=== PATIENT | female | born 2000 | race Caucasian/White ===

== ENCOUNTER 2021-03-08 12:40 | Outpatient (REF) | payer OTHER, SELFPAY | END 2021-03-08 12:41 | disposition home or self-care (01) | LOC: HO.HMGCLDS 12:40 | PROVIDERS: Visit Provider Internal Medicine | DX: Z20.822 Contact with and (suspected) exposure to COVID-19 (principal) | CPT/HCPCS: C9803; U0003; U0005 ==

== ENCOUNTER 2021-08-30 17:41 | Outpatient (REF) | payer OTHER, SELFPAY ==
[2021-08-30 18:35] LABS: Influenza A PCR POSITIVE (Negative); Influenza B PCR NEGATIVE (Negative); Resp Syncy Virus RNA Qual PCR NEGATIVE (Negative); SARS COV2 PCR INHOUSE NEGATIVE (Negative)
== END 2021-08-30 17:42 | disposition home or self-care (01) ==
LOC: HO.LNP 17:41
PROVIDERS: Visit Provider Physician Assistant
DX: Z20.822 Contact with and (suspected) exposure to COVID-19 (principal); B34.9 Viral infection, unspecified
CPT/HCPCS: 0241U

== ENCOUNTER 2021-12-30 08:52 | Emergency (ER) | payer OTHER, SELFPAY ==
--- NOTE | ~2021-12-30 | XR_ITS ---
EXAMINATION: XR CHEST CLINICAL INFORMATION: Chest pain COMPARISON: None TECHNIQUE: 2 views of the chest were obtained. FINDINGS: No significant abnormality is noted involving the heart, lungs, mediastinum, bony thorax or soft tissues. XR/XR chest 2V IMPRESSION: Unremarkable examination.
[2021-12-30 09:00] VITALS: BP 119/94; PULSE 67; RESP 20; TEMP 36.2; O2SAT 99; BMI 34.3
--- NOTE | 2021-12-30 09:05 | ECG_ITS ---
Test Reason : chest pain Blood Pressure : / mmHG Vent. Rate : 061 BPM Atrial Rate : 061 BPM P-R Int : 130 ms QRS Dur : 086 ms QT Int : 402 ms P-R-T Axes : 052 038 033 degrees QTc Int : 404 ms Normal sinus rhythm Normal ECG No previous ECGs available Referred By: Generic ED Physician Electronically Signed By:KAYLEIGH SHARP
--- NOTE | 2021-12-30 09:22 | ED_ITS ---
HPI - Chest Pain General Chief Complaint: Chest Pain Stated Complaint: Chest Pain Time Seen by Provider: 12/30/21 09:17 Source: patient Mode of arrival: ambulatory Limitations: no limitations History of Present Illness HPI narrative: 21 yo female who is healthy presents with chest pain since 8 am which she noticed while lying in bed accompanied by dry heaving. Pain has been constant since and described as tight and worsened with deep breathing and movement. No associated SOB, palpitations, leg swelling or leg pain, cough, fever. No recent travel or sick contact. No OCP use. Had 2 covid vaccinations ([email or web address]). Mom had [place] at 40 yrs of age, MGF CAD Related Data Home Medications Medication Instructions Recorded Confirmed duloxetine 60 mg capsule,delayed 60 mg PO DAILY 08/30/21 release Allergies Allergy/AdvReac Type Severity Reaction Status Date / Time No Known Allergies Allergy Unverified 08/30/21 16:06 Review of Systems Review of Systems: Yes all other systems are reviewed and are negative Constitutional: Constitutional: Reports no additional constitutional co mplaints, Denies body ache(s), Denies chills, Denies fever(s), Denies headache(s) and Denies weakness Eyes: Eyes: Reports no additional eye complaints and Denies change in vision ENT: Reports system reviewed and no additional complaints, except as documented, Denies dizziness, Denies headache(s), Denies nasal congestion, Denies nasal discharge and Denies neck pain Cardiovascular: Cardiovascular: Reports no additional cardiovascular complaints, Reports chest pain, Denies leg edema and Denies dyspnea Respiratory: Respiratory: Reports no additional respiratory complaints, Denies cough and Denies dyspnea Gastrointestinal: Gastrointestinal: Reports no additional gastrointestinal complaints, Denies abdominal pain, Denies diarrhea, Reports nausea and Reports vomiting Genitourinary: Genitourinary: Reports no additional female genitourinary complaints and Denies urinary incontinence Musculoskeletal: Musculoskeletal: Reports no additional musculoskeletal complaints, Denies back pain, Denies arthralgias, Denies joint swelling, Denies neck pain, Denies numbness and Denies tingling Integumentary/Breasts: Skin/Breast: Reports system reviewed and no additional complaints, except as docu and Denies rash Neurologic: Reports system reviewed and no additional complaints, except as documented, Denies Abnormal speech present, Denies dizziness, Denies headache(s ), Denies numbness, Denies tingling and Denies weakness [facility] Past Medical History Attestation statement: The following information was validated with the patient. Source: old records reviewed and nursing notes reviewed Family History Family History (Updated 12/30/21 @ 09:33 by Jailene Headley NP) Mother CAD (coronary artery disease) Maternal Grandfather CAD (coronary artery disease) Social History Social History Advance Directives: No Advance Directives Information Provided: No Physical Exam Vital Signs: Vital Signs: Last Vital Signs Temp 97.2 F 12/30/21 09:00 Pulse 67 12/30/21 09:00 Resp 20 12/30/21 09:00 BP 119/94 H 12/30/21 09:00 Pulse Ox 99 12/30/21 09:00 O2 Del Method 12/30/21 09:00 BMI result Body Mass Index 34.3 Const: Other: +tearful General: alert Orientation/consciousness: patient oriented x3 Limitations: no limitations HEENT: Head: Yes normal to inspection Ears: hearing grossly normal bilaterally General nose exam: Normal external nose present Face and sinus: Yes normal facial exam Mouth: Normal oral and palatal mucosa present Throat: Yes posterior oropharynx normal Eyes: General: appearance normal, both eyes and all related structures Pupils: Equal, round and reactive pupils present Neck: Neck: Yes normal visual inspection Chest: Other: Chest discomfort with movement of trunk, deep breathing Chest palpation & inspection: normal inspection of the chest Resp: Effort & Inspection: normal respiratory effort Auscultation: clear to auscultation bilaterally Cardio: Rate: regular rate Rhythm: regular rhythm Peripheral pulses: Peripheral pulses 2+ throughout GI: Inspection: Yes normal to inspection Palpation (GI): Soft to palpation and nontender Auscultation: normal bowel sounds Back/Spine/Pelvis: Thoracic/Lumbar Spine: thoracic and lumbar spine normal to inspection Skin: General skin exam: no rashes or lesions noted Neuro: General: patient oriented x3, no focal motor deficits and normal sensation to monofilament Cranial nerves: Yes Equal, round and reactive pupils present Cognition (Neuro): normal cognition Speech: No Abnormal speech present Gait exam (Neuro): Normal gait present Motor exam (neuro): 5/5 motor strength present throughout Extrem: General: Yes normal to inspection, Yes no pedal edema and Yes no calf tenderness Course Course Course Narrative: 1145-Labs including d dimer, troponin are negative. CXR shows no acute finding. EKG shows no ischemic changes. COVID screen positive. No hypoxia or tachypnea. CP less likely ACS. Likely Will discharge home with recommendations for quarantine x5 days, return for worrisome sign/symptoms. comfortable with plan for discharge home. MDM - Chest Pain MDM Narrative Medical decision making narrative: 21 yo female here with constant chest pain not exertional describes as tightness worsened with deep breathing and movement since 8am Will need labs, EKG, CXR, covid screen, analgesia less likely acs however strong family history cad, will r/o pe Medical Records Data Attestation: I reviewed the patient's medical records. Lab Data Attestation: I reviewed the patient's lab results. Result diagrams: 12/30/21 09:38 12/30/21 09:38 Labs: Lab Results 12/30/21 12/30/21 12/30/21 Range/Units 09:38 09:38 09:38 WBC 8.8 (4.8-10.8) X10*3/uL RBC 4.71 (4.20-5.50) X10*6/uL Hgb 13.9 (12.0-16.0) g/dl Hct 42.5 (37.0-47.0) % MCV 90.2 (80.0-98.0) fL MCH 29.5 (27.0-33.0) pg MCHC 32.7 (31.0-35.0) g/dl RDW 12.7 (11.0-16.0) % Plt Count 273 (160-400) X10*3/uL MPV 9.7 (9.4-12.3) fL Immature Gran % (Auto) 0.3 (0.0-0.4) % Neut % (Auto) 64.3 (45-73) % Lymph % (Auto) 25.3 (20-40) % [place] % (Auto) 8.2 (2-11) % Eos % (Auto) 1.4 (0-4) % Baso % (Auto) 0.5 (0-2) % Lymph # (Auto) 2.2 (1.2-4.9) X10*3/uL [place] # (Auto) 0.7 (0.1-1.2) X10*3/uL Eos # (Auto) 0.1 (0.0-0.4) X10*3/uL Baso # (Auto) 0.0 (0.0-0.2) X10*3/uL Abs Immat Gran (auto) 0.03 (0.00-0.03) X10*3/uL Absolute Neuts (auto) 5.7 (2.0-8.3) x10*3/uL Absolute Nucleated RBC 0.000 (0.0-0.012) X10*3/uL Nucleated RBC % (auto) 0.0 (0.0-0.2) /100WBC PT (10.0-13.1) SEC INR (0.9-1.1) D-Dimer High Sensitivty NG/ML Sodium 138 (135-145) mmol/L Potassium 4.9 (3.3-5.1) mmol/L Chloride 108 (96-108) mmol/L Carbon Dioxide 19 L (22-29) mmol/L Anion Gap 16 (12-20) BUN 10 (9-16) mg/dL Creatinine 0.72 (0.5-1.4) mg/dL Estim Creat Clear Calc 132.5 Estimated GFR > 60 Random Glucose 102 (60-115) mg/dL Calcium 9.0 (8.4-10.2) mg/dL Total Bilirubin 0.3 (0.0-1.0) mg/dL Direct Bilirubin < 0.2 (0.0-0.5) mg/dL AST 26 (5-31) U/L ALT 23 (0-31) U/L Alkaline Phosphatase 82 (39-117) U/L Troponin I High Sens < 3.5 (<3.5-17.0) ng/L Total Protein 7.2 (6.5-8.0) g/dL Albumin 4.4 (3.5-5.0) g/dL Urine Test (NEGATIVE) COVID-19 (ЕЛЕНА) (Negative) COVID-19 Clin Com 12/30/21 12/30/21 12/30/21 Range/Units 09:38 10:01 10:13 WBC (4.8-10.8) X10*3/uL RBC (4.20-5.50) X10*6/uL Hgb (12.0-16.0) g/dl Hct (37.0-47.0) % MCV (80.0-98.0) fL MCH (27.0-33.0) pg MCHC (31.0-35.0) g/dl RDW (11.0-16.0) % Plt Count (160-400) X10*3/uL MPV (9.4-12.3) fL Immature Gran % (Auto) (0.0-0.4) % Neut % (Auto) (45-73) % Lymph % (Auto) (20-40) % Mohave % (Auto) (2-11) % Eos % (Auto) (0-4) % Baso % (Auto) (0-2) % Lymph # (Auto) (1.2-4.9) X10*3/uL [place] # (Auto) (0.1-1.2) X10*3/uL Eos # (Auto) (0.0-0.4) X10*3/uL Baso # (Auto) (0.0-0.2) X10*3/uL Abs Immat Gran (auto) (0.00-0.03) X10*3/uL Absolute Neuts (auto) (2.0-8.3) x10*3/uL Absolute Nucleated RBC (0.0-0.012) X10*3/uL Nucleated RBC % (auto) (0.0-0.2) /100WBC PT 11.1 (10.0-13.1) SEC INR 1.0 (0.9-1.1) D-Dimer High Sensitivty < 150 NG/ML Sodium (135-145) mmol/L Potassium (3.3-5.1) mmol/L Chloride (96-108) mmol/L Carbon Dioxide (22-29) mmol/L Anion Gap (12-20) BUN (9-16) mg/dL Creatinine (0.5-1.4) mg/dL Estim Creat Clear Calc Estimated GFR Random Glucose (60-115) mg/dL Calcium (8.4-10.2) mg/dL Total Bilirubin (0.0-1.0) mg/dL Direct Bilirubin (0.0-0.5) mg/dL AST (5-31) U/L ALT (0-31) U/L Alkaline Phosphatase (39-117) U/L Troponin I High Sens (<3.5-17.0) ng/L Total Protein (6.5-8.0) g/dL Albumin (3.5-5.0) g/dL Urine Test NEGATIVE (NEGATIVE) COVID-19 (ЕЛЕНА) Positive A (Negative) COVID-19 Clin Com See Note Imaging Data Chest x-ray: Attestation: I personally reviewed and interpreted this imaging study as follows: Radiologist's impression: cc: Jailene Headley DELIVERY DRIVER/SUPERVISOR~ EXAMINATION: XR CHEST CLINICAL INFORMATION: Chest pain COMPARISON: None TECHNIQUE: 2 views of the chest were obtained. FINDINGS: No significant abnormality is noted involving the heart, lungs, mediastinum, bony thorax or soft tissues. XR/XR chest 2V IMPRESSION: Unremarkable examination. ECG Data ECG #1: Attestation: I personally reviewed and interpreted this ECG as follows: ECG interpretation date: 12/30/21 ECG interpretation time: 09:10 Interpretation: NSR with rate 61, normal pr, normal qrs, normal qt Discharge Plan Discharge Clinical Impression: COVID-19, Atypical chest pain Patient Disposition: Home, Self-Care Instructions: Chest Wall Pain (ED), COVID-19 (Coronavirus Disease 2019) (ED) Additional Instructions: Covid screen is positive Quarantine for 5 days Motrin or tylenol for pain as needed Prescriptions: No Action duloxetine 60 mg capsule,delayed release(DR/EC) 60 mg PO DAILY Referrals: Physician,Unknown J [Primary Care Provider] - Stand Alone Forms: Work/School Release
[2021-12-30 09:44] LABS: MANUAL DIFF FLAG NO
[2021-12-30 09:47] LABS: Basophils Percent Auto 0.5 % (0-2); Eosinophils Absolute Auto 0.1 X10*3/uL (0.0-0.4); Eosinophils Percent Auto 1.4 % (0-4); Hematocrit 42.5 % (37.0-47.0); Hemoglobin 13.9 g/dl (12.0-16.0); Imm Gran Abs Auto 0.03 X10*3/uL (0.00-0.03); Imm Gran Pct Auto 0.3 % (0.0-0.4); Lymphocytes Absolute Auto 2.2 X10*3/uL (1.2-4.9); Lymphocytes Percent Auto 25.3 % (20-40); Mean Corpuscular HGB Conc 32.7 g/dl (31.0-35.0); Mean Corpuscular Hemoglobin 29.5 pg (27.0-33.0); Mean Corpuscular Volume 90.2 fL (80.0-98.0); Mean Platelet Volume 9.7 fL (9.4-12.3); Monocytes Absolute Auto 0.7 X10*3/uL (0.1-1.2); Monocytes Percent Auto 8.2 % (2-11); Neutrophils Absolute Auto 5.7 x10*3/uL (2.0-8.3); Neutrophils Percent Auto 64.3 % (45-73); Platelet Count 273 X10*3/uL (160-400); Red Blood Count 4.71 X10*6/uL (4.20-5.50); Red Cell Distribution Width 12.7 % (11.0-16.0); White Blood Count 8.8 X10*3/uL (4.8-10.8)
[2021-12-30 09:53] LABS: COVID-19 Test Positive (Negative)
[2021-12-30 10:06] LABS: Troponin-I High Sensitivity < 3.5 ng/L (<3.5-17.0)
[2021-12-30 10:12] LABS: Prothrombin Time 11.1 SEC (10.0-13.1)
[2021-12-30 10:15] LABS: D Dimer High Sensitivity < 150 NG/ML
[2021-12-30 10:17] LABS: Alanine Aminotransferase 23 U/L (0-31); Albumin Level 4.4 g/dL (3.5-5.0); Alkaline Phosphatase 82 U/L (39-117); Anion Gap 16 (12-20); Aspartate Amino Transferase 26 U/L (5-31); Bilirubin Direct < 0.2 mg/dL (0.0-0.5); Bilirubin Total 0.3 mg/dL (0.0-1.0); Blood Urea Nitrogen 10 mg/dL (9-16); Carbon Dioxide 19 mmol/L (22-29); Chloride 108 mmol/L (96-108); Creatinine Clr Calc Pharmacy 132.5; Estimated Glomerular Filt Rate > 60; Glucose Random 102 mg/dL (60-115); Potassium 4.9 mmol/L (3.3-5.1); Sodium 138 mmol/L (135-145); Total Protein 7.2 g/dL (6.5-8.0)
[2021-12-30 10:22] LABS: UPreg QC Valid YES; Urine Pregnancy NEGATIVE (NEGATIVE)
== END 2021-12-30 12:06 | disposition home or self-care (01) ==
PROVIDERS: Nurse Practitioner Family; Emergency Provider Emergency Medicine
DX: U07.1 COVID-19 (principal); R07.89 Other chest pain; Z79.899 Other long term (current) drug therapy
CPT/HCPCS: 71046; 80048; 80076; 81025; 84484; 85025; 85379; 85610; 87635; 93005; 99283

== ENCOUNTER 2022-03-29 06:01 | Outpatient (REF) | payer OTHER, SELFPAY ==
--- NOTE | ~2022-03-29 | FL_ITS ---
EXAMINATION: XR FLUOROSCOPY WITH IMAGES CLINICAL INFORMATION: Sacroiliitis COMPARISON: None. TECHNIQUE: Fluoroscopy Supervised By: Dr. Brian Colon. Fluoroscopy Time: 0.1. Minutes Cumulative Dose: 4.88 mGy. DAP: 1.33 Gycm2. Images: 1. FINDINGS: Needle and contrast are seen overlying the right sacroiliac joint. FL/FL guidance in treatment room IMPRESSION: Intraoperative fluoroscopy for pain management procedure.
== END 2022-03-29 06:02 | disposition home or self-care (01) ==
LOC: CF 06:01
PROVIDERS: Visit Provider Anesthesiology
DX: M53.3 Sacrococcygeal disorders, not elsewhere classified (principal); G89.29 Other chronic pain; M46.1 Sacroiliitis, not elsewhere classified; M47.816 Spondylosis without myelopathy or radiculopathy, lumbar region
CPT/HCPCS: 27096; J2795; J3301; Q9965; Q9967

== ENCOUNTER 2023-09-13 15:43 | Outpatient (AMB) | payer OTHER, SELFPAY ==
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
[2023-09-13 15:48] VITALS: BP 140/78; PULSE 98; RESP 16; O2SAT 98
== END 2023-09-13 15:56 | disposition home or self-care (01) ==
LOC: HO.PMC 15:43
PROVIDERS: PCP Physician Assistant Medical; Visit Provider Anesthesiology
DX: M53.3 Sacrococcygeal disorders, not elsewhere classified (principal); G89.29 Other chronic pain; M46.1 Sacroiliitis, not elsewhere classified; M47.816 Spondylosis without myelopathy or radiculopathy, lumbar region
CPT/HCPCS: 99213

== ENCOUNTER → 2023-09-13 15:43 | Outpatient (BNVA) | payer OTHER, SELFPAY | PROVIDERS: PCP Physician Assistant Medical; Visit Provider Anesthesiology ==

== ENCOUNTER 2025-02-17 14:45 | Outpatient (AMB) | payer OTHER, SELFPAY ==
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
[2025-02-17 15:08] VITALS: BP 120/84; PULSE 86; RESP 16; TEMP 36.2; O2SAT 97; BMI 46.2
--- OUTSIDE RECORDS SUMMARY | 2025-02-17 17:01 | XMS_ITS | Clinical Summary ---
Author Organization [address] [place] [address] [place] [phone] Phone Care Team Providers Care Ecological Technical Officer Name Role Phone Juan Archer MD Primary Care Provider [phone] Allergies No known active allergies Medications albuterol HFA (PROAIR HFA ; PROVENTIL HFA ; VENTOLIN HFA) 90 mcg/actuation inhaler Inhale 2 Puffs into the lungs every 4 hours as needed for Cough or Wheezing. And use 15-30 min before exercise 2 Active buPROPion XL (WELLBUTRIN XL) 300 mg 24 hr tablet Take 1 Tablet by mouth every morning. Active inhaler, assist devices (AEROCHAMBER MV MISC) 1 Container by Does not apply route daily. 4 Active Active Problems Problem Noted Date Diagnosed Date Tired 07/04/2016 Overview (04/11/2024): 2-17: all the time referred for sleep study- pt has not responded to calls and letter to book appt- see phone message 07-04-16 07/05/17: dad's phone was in chart- entered pat's and referred again Depression 06/02/2015 Overview (04/11/2024): 07-08-15: [facility] 07-16[facility]15: started on setraline and up to 50 mg and doing well- to be discharged soon- will have med provider but doesn't have appt yet 2-17: see Whitney Cardenas and finding a therapist on sertraline 150 mg 07/05/17: no longer on sertraline- took herself off; last used a few months ago- no therapist- is going to islam and feeling better Acne 09/24/2014 Overview (04/11/2024): 09-15-14:minocycline; retin A 2-16 janeen face wash 2-17: doing well no meds! Last Assessment & Plan: 2-16 janeen face wash Headache 01/31/2014 Overview (04/11/2024): 2-16 improving prn advil 2-17: CASILLAS 3 d a week- had been 7d per week 07/05/17: less frequent and less severe since wearing glasses more Last Assessment & Plan: 2-16 improving prn advil Asthma 05/11/2007 Overview (04/11/2024): Trigger: URI's /pneumonia Last albuterol use winter 2007 As of 09-23-10: not used in a year 10-27-11: felt difficulty breathing in one softball game this past year- did not use albuterol- had 2-16 prn proair 2-17: using alb before exercise 07/05/17: uses alb prior to exercise- no other time Last Assessment & Plan: 2-16 prn proair Immunizations Immunization Administration Dates Next Due DTaP (Infanrix) 6wks to less than 7yo ,05/17/2000,04/27/1999,02/16,1998 [id number] (Pentacel) 2mo to less than 5yo 02/24/2000,04/27/1999,02/16/1999,12/10 H1N1 Inj Preservative Free 01/29/2009 HPV, Quadrivalent 10/27/2011,11/23/2010,09/24/19 11 Hepatitis B Pediatric (Enger ix B; Recombivax HB) to less than 20 yo 08/18/1999,04/27/1999,1998 IPV Inactivated polio (Ipol) 6wks and older 07/25/2003,04/13/2001,02/16/1999,12/10 Influenza trivalent, 0.5mL, preservative free (Fluarix; FluLaval; Fluzone) ages 6mo and older (Afluria) 3 years and older 02/20/2021,01/23/2014,12/28/2012,12/23,12/07/2009,05/11/2007,04/06/2007 MMR, measles mumps and rubel la Live (Priorix; M-M-R II) 12mo and older 07/25/2003,02/24/2000 Meningococcal MCV4P 06/02/2015,10/27/2011 Pneumococcal Conjugate Vacci ne, 7 Valent 05/17/2000,02/24/2000 Td Tetanus diptheria (Tdvax) 7yo and older 04/29/2021 Tdap Tetanus diptheria acell ular pertussis (Boostrix; Adacel) 7yo and older 09/23/2010 Varicella live (Varivax) 12m o and older 07/30/2009,11/25/1999 Surgical History Surgery Date Site/Laterality Comments WRIST MASS EXCISION 03/28/03 PROCEDURE: GA EXCISION GANGLION WRIST DORSAL/VOLAR PRIMARY OTHER SURGICAL HISTORY PROCEDURE: GA LARYNGOSCOPY FLEXIBLE RMVL LESION(S) NON-LASER; COMMENT: 2007 OTHER SURGICAL HISTORY age 1 PROCEDURE: GA PARTIAL EXCISION BONE CLAVICLE; COMMENT: removal of spur OTHER SURGICAL HISTORY 05-16-16 PROCEDURE: GA INCISION & DRAINAGE PILONIDAL CYST SIMPLE; COMMENT: I and D OTHER SURGICAL HISTORY 08/2018 PROCEDURE: GA EXCISION PILONIDAL CYST/SINUS COMPLICATED Medical History Medical History Date Comments Headache 01/31/2014 DX:Headache; COM MENT: 2-16 improving prn advil 2-17: CASILLAS 3 d a week- had been 7d per week 07/05/17: less frequent and less severe since wearing glasses more Depression 06/02/2015 DX:Depression; C OMMENT: 07-08-15: [facility] 07-16-15: started on setraline and up to 50 mg and doing well- to be discharged soon- will have med provider but doesn't have appt yet 2-17: see Whitney Cardenas and finding a therapist on sertraline 150 mg 07/05/17: no longer on sertraline- took herself off; last used a few months ago- no therapist- is going to islam and feeling better Acne 09/24/2014 DX:Acne; COMMENT : 09-15-14:minocycline; retin A 05-26 janeen face wash 05-27: doing well no meds! Pilonidal cyst 05/19/2016 DX:Pilonidal cys t; COMMENT: 05-27: with infection- I and D at [facility] surgery 07/05/17: not bothering her Asthma 05/11/2007 DX:Asthma; COMME NT: Trigger: URI's /pneumonia Last albuterol use winter 2007 As of 09-23-10: not used in a year 10-27-11: felt difficulty breathing in one softball game this past year- did not use albuterol- had 05-26 prn proair 05-27: using alb before exercise 07/05/17: uses alb prior to exercise- no other time Tired 07/04/2016 DX:Tired; COMMEN T: 05-27: all the time referred for sleep study- pt has not responded to calls and letter to book appt- see phone message 07-04-16 07/05/17: dad's phone was in chart- entered pat's and referred again Family History Medical History Relation Name Comments Diabetes Maternal Grandfather Heart attack Maternal Grandfather age 55y r; and mom at age 44yr Hypertension Maternal Grandfather Diabetes Maternal Grandmother Heart attack Mother Hypertension Mother Other: Other Other no FH asthma Heart attack Paternal Grandfather after a ge 55yr Lung cancer Paternal Grandmother Breast cancer Neg Hx Ovarian cancer Neg Hx Uterine cancer Neg Hx Relation Name Status Comments Father Alive Papo 05/23/66 Maternal Grandfather Maternal Grandmother Mother Alive Amy 02/08/67 Other Paternal Grandfather Paternal Grandmother Sister Alive Olena Social History Tobacco Use Types Packs/Day Years Used Date Smoking Tobacco: Every Day Smokeless Tobacco: Never Alcohol Use Standard Drinks/Week Comments Never 0 (1 standard drink = 0.6 oz pur e alcohol) Comments Unknown Sex and Gender Information Value Date Recorded Sex Assigned at Female 11/14/2023 2:31 PM EDT Legal Sex Female 3:35 AM EST Gender Identity Female 11/14/2023 2:31 PM EDT Sexual Orientation Bisexual 11/14/2023 2: 31 PM EDT Obstetrics History Last Filed Vital Signs Vital Sign Reading Time Taken Comments Blood Pressure 134/81 04/24/2024 1:29 PM EST Pulse 83 04/24/2024 1:29 PM EST Temperature 36.9 C (98.5 F) 04/24/2024 1:29 PM EST Respiratory Rate - - Oxygen Saturation 98% 04/24/2024 1:29 PM EST Inhaled Oxygen Concentration - - Weight 114 kg (251 lb 6.4 oz) 04/21/2023 9:40 AM EST Height 162.6 cm (5' 4 ) 04/21/2023 9:40 AM EST Body Mass Index 43.15 04/21/2023 9:40 AM EST Plan of Treatment Health Maintenance Due Date Last Done Comments Pneumococcal Vaccine: Pediatrics (0 to 5 Years) and At-Risk Patients (6 to 49 Years) (1 of 1 - PPSV23, PCV20, or PCV21) 2004 05/17/2000, 02/24/2000 Social Influencers of Health Screening 03/13/2022 Depression Screening 04/10/2024 Cervical Cancer Screening: Pap Smear 06/10/2024 06/10/2021, 06/10/2021 COVID-19 Vaccine ( - season) 2024 08/22/2020, 08/01/2020 Influenza Vaccine (#1) 2024 2, 02/20/2021, 01/12/2020, Additional history exists Cholesterol Screening (Lipid Panel) 05/13/2026 05/13/2021 DTaP,Tdap,and Td Vaccines (8 - Td or Tdap) 04/29/2031 04/29/2021, 09/23/2010, 07/25/2003, Additional history exists RSV Immunization Adult Patients (1 - 1-dose 75+ series) 2073 Hepatitis B Vaccines Completed 08/18/1999, 04/27/1999, 1998 HIB Vaccines Completed 02/24/2000, 02/08, 04/27/1999, Additional history exists IPV Vaccines Completed 07/25/2003, 07/2001, 02/24/2000, Additional history exists MMR Vaccines Completed 07/25/2003, 02/24/2000 Varicella Vaccines Completed 07/30/2009, 11/25/1999 HPV Vaccines Completed 10/27/2011, 11/08, 09/23/2010 Meningococcal ACWY Vaccine Completed 06/02/2015, HIV Screening Completed 06/18/2021 Hepatitis C Screening Completed 06/18/2021 Gonorrhea/Chlamydia Screening Discontinued 10/24/2023 Hepatitis A Vaccines Aged Out No long er eligible based on patient's age to complete this topic Meningococcal B Vaccine Aged Out No l onger eligible based on patient's age to complete this topic RSV Immunization Patients Under 20 months Aged Out No longer eligible based on patient's age to complete this topic Procedures Procedure Name Priority Date/Time Associated Diagnosis Comments GONORRHEA/CHLAMYDIA SCRREENING Routine 10/24/2023 HEPATITIS C SCREENING Routine 06/18/2021 HIV SCREENING Routine 06/18/2021 PAP SMEAR Routine 06/10/2021 LIPID PANEL Routine 05/13/2021 from Last 3 Months or Most Recently Relevant to Health Maintenance Results * Gonorrhea/Chlamydia Screening (10/24/2023) Gonorrhea/Chla mydia Screening abstracted [facility] [place] Provider HEALTH MAINTENANCE Final Result * HIV Screening (06/18/2021) HIV Screening abstracted [facility] [place] [facility] Provider HEALTH MAINTENANCE Final Result * Hepatitis C Screening (06/18/2021) Hepatitis C Screening abstracted [facility] [place] [facility] Provider MD HEALTH MAINTENANCE Final Result * Pap smear (06/10/2021) 06/10/2021 Narrative HISTORICAL TESTING LAB RESULTING AGENCY - 06/18/2021 12:45 PM EST [id number] THINPREP PAP, IMAGED: NEGATIVE FOR SQUAMOUS INTRAEITHELIAL LESION AND MALIGNANCY. NOTE: THE PAP TEST IS A SCREENING TEST WITH AN INHERENT FALSE NEGATIVE RATE. AUTOMATED PRESCREENING OF ALL LIQUID BASED SPECIMENS IS PERFORMED BY THE THINPREP IMAGING SYSTEM UNLESS OTHERWISE STATED. DUSTY REYNOLDS(ASCP) (CASE ELECTRONICALLY SIGNED 06 18 2021) ADEQUACY: SATISFACTORY ENDOCERVICAL/TRANSFORMATION ZONE COMPONENT PRESENT. SOURCE: THINPREP PAP HPV IF ASCUS, CERVICAL, IMAGED CLINICAL INFORMATION: HPV IF DIAGNOSIS OF ASCUS. Z12.4 Adelita Munoz CNM LAB CYTOLOGY ORDERABLES Final Result HISTORICAL TESTING LAB RESULTING AGENCY * (ABNORMAL) Lipid panel (05/13/2021) LDL/HDL Ratio 3 0 - 4 Triglycerides 53 0 - 150 mg/dL Cholesterol 173 0 - 200 mg/dL HDL 53 >=40 mg/dL LDL Cholesterol 110(A) 0 - 100 mg/dL Blood Venous blood specimen / Unknown Historical Provider LAB BLOOD ORDERABLES Deb velarde Result from Last 3 Months or Most Recently Relevant to Health Maintenance Insurance [address] [address] Care Teams Ecological Technical Officer Relationship Specialty Start Date End Date Juan Archer MD [address] [place] [id number] PCP - General 04/20/23
== END 2025-02-17 16:14 | disposition home or self-care (01) ==
LOC: HO.HMCHD 14:46
PROVIDERS: PCP Internal Medicine; Visit Provider Internal Medicine
DX: Z00.00 Encounter for general adult medical examination without abnormal findings (principal); J45.909 Unspecified asthma, uncomplicated; E66.01 Morbid (severe) obesity due to excess calories; Z68.42 Body mass index [BMI] 45.0-49.9, adult; R06.09 Other forms of dyspnea; R01.1 Cardiac murmur, unspecified

== ENCOUNTER → 2025-02-17 14:45 | Outpatient (BNVA) | payer OTHER, SELFPAY | PROVIDERS: PCP Internal Medicine; Visit Provider Internal Medicine | DX: Z00.00 Encounter for general adult medical examination without abnormal findings (principal); J45.909 Unspecified asthma, uncomplicated; E66.01 Morbid (severe) obesity due to excess calories; Z68.42 Body mass index [BMI] 45.0-49.9, adult; R06.09 Other forms of dyspnea; R01.1 Cardiac murmur, unspecified | CPT/HCPCS: 96127 ==

== ENCOUNTER 2025-02-18 07:23 | Outpatient (REF) | payer OTHER, SELFPAY ==
--- OUTSIDE RECORDS SUMMARY | 2024-07-08 03:30 | XMS_ITS ---
Author Organization [facility] Address [address] [place] [address] Care Team Providers Care Chief Operator Name Role Phone Anson Kirkland Primary Care Provider UnavailKen Abdalla Unavailable [phone] Hali Love [phone] REASON FOR VISIT Seen Sooner Encounters Encounter Location Date Provider Diagnosis [facility] [address] [place] [address] 07/08/2024 Hali Love Plan Of Treatment No Information Progress Notes * Zechariah SAN ADOB: [birth year] (24 yo F)Acc No.[id number]:07/08/2024 Progress Notes Patient: Maureen CALINLOUISEZechariah Provider: Pepito Love DPM :2000 A ge:23 Y S ex:Female Date:07/08/2024 Address:[address] [place] [id number] Pcp:Anson Kirkland Subjective: * Chief Complaints: * 1 . Seen Sooner. * Medical History: Objective: * Vitals: Assessment: Plan: * Treatment: * Images: * The named appointment provid er may or may not be the originator of this progress note, and it is not deemed complete until electronically signed by the appointment provider. Sign off status: Pending * Provider: Pepito Love DPM Date: 0 07/08/2024 Generated for Asiya khanna/Susy/Jazmyn on: 1 04/20/2024 07:25 AM EST
--- OUTSIDE RECORDS SUMMARY | 2025-02-18 07:25 | XMS_ITS | Clinical Summary ---
Author Organization [address] [place] [address] [place] [phone] Phone Care Team Providers Care Gear Technician Name Role Phone Juan Archer MD Primary Care Provider [phone] Allergies No known active allergies Medications albuterol [...] months ago- no therapist- is going to [facility]az[facility]ism and feeling better Acne 09/24/2014 Overview (04/11/2024): [...] (Infanrix) 6wks to less than 7yo ,05/17/2000,04/27/1999,02/16,1998 [id number] (Pentacel) 2mo to less than 5yo 02/24/2000,04/27/1999,02/16/1999,12/10 [...] Site/Laterality Comments WRIST MASS EXCISION 03/28/03 PROCEDURE: CT EXCISION GANGLION WRIST DORSAL/VOLAR PRIMARY OTHER SURGICAL HISTORY PROCEDURE: CT LARYNGOSCOPY FLEXIBLE RMVL LESION(S) NON-LASER; COMMENT: 2007 OTHER SURGICAL HISTORY age 1 PROCEDURE: CT PARTIAL EXCISION BONE CLAVICLE; COMMENT: removal of spur OTHER SURGICAL HISTORY 05-16-16 PROCEDURE: CT INCISION & DRAINAGE PILONIDAL CYST SIMPLE; COMMENT: I and D OTHER SURGICAL HISTORY 08/2018 PROCEDURE: CT EXCISION PILONIDAL CYST/SINUS COMPLICATED Medical History Medical [...] months ago- no therapist- is going to [facility] and feeling better Acne 09/24/2014 DX:Acne; COMMENT : 09-15-14:minocycline; retin A 05-26 janeen face wash 05-27: doing well no meds! Pilonidal cyst 05/19/2016 DX:Pilonidal cys t; COMMENT: 05-27: with infection- I and D [place] [facility] [place] 07/05/17: not bothering her Asthma 05/11/2007 [...] Gonorrhea/Chlamydia Screening (10/24/2023) Gonorrhea/Chla mydia Screening abstracted [facility] Provider HEALTH MAINTENANCE Final Result * HIV Screening (06/18/2021) HIV Screening abstracted [facility] Provider HEALTH MAINTENANCE Final Result * Hepatitis C Screening (06/18/2021) Hepatitis C Screening abstracted [facility] Provider MD HEALTH MAINTENANCE Final Result * Pap smear (06/10/2021) 06/10/2021 Narrative HISTORICAL TESTING LAB RESULTING AGENCY - 06/18/2021 12:45 PM EST [id number] THINPREP PAP, IMAGED: NEGATIVE FOR SQUAMOUS INTRAEITHELIAL [...] Most Recently Relevant to Health Maintenance [place] [address] [place] [address] Care Teams Gear Technician Relationship Specialty Start Date End Date Juan Archer MD [address] [place] [id number] PCP - General 04/20/23
--- OUTSIDE RECORDS SUMMARY | 2025-02-18 07:25 | XMS_ITS | Patient Health Record ---
Author Organization [facility] Ernestine bae [place] Address [address] [place] [address] Care Team Providers Care Dialysis Social Worker Name Role Phone Anson Kirkland Primary Care Provider UnavailKen Abdalla Unavailable [phone] Black, Hali Unavailable [phone] Allergies No Known Allergies Reason For Referral No Information Medications Medication SIG (Take, Route, Fr equency, Duration) Notes Start Date End Date Status Vitamin K2-Vitamin D3 Active Vitamin B1 Active Fish Oil Active Biotin Active Social History Tobacco Use: Social History Observation Description Date Details (start date - stop date) Never Smoker NA - NA Tobacco use other than smoking: Question Answer Notes Are you an other tobacco user? No Tobacco Control (Standard) Question Answer Notes Tobacco use: Nonsmoker Additional Findings: Tobacco non-user Current no nsmoker AUDIT-C (Standard) Question Answer Notes Did you have a drink containing alcohol in the p ast year? No Points 0 Interpretation Negative Vital Signs Blood pressure diastolic 80 mm Hg 05/07/2024 Height 5 ft 4 in in 05/07/2024 Blood pressure systolic 120 mm Hg 05/07/2024 Weight 260 lbs 05/07/2024 BMI 44.62 kg/m2 05/07/2024 Procedures Procedure Date Ordered Date Performed Result Body [place] e [address]- I&D ABSCESS-COMPLICATED,MULTI 05/07/2024 N/A Encounters Encounter Location Date Provider Diagnosis [facility] [address] [place] [address] 05/07/2024 Ken Guy Abscess of toe of left foot L02.612 ; Abscess of toe of right foot L02.611 and Ingrown nail L60.0 Assessments Encounter Date Diagnosis (ICD Code) Assessment Notes Treatment Notes Treatment Clinical Notes Section Notes 05/07/2024 Abscess of toe of left foot (ICD-10 - L02.612) Patient Educated with: WOUND CARE INSTRUCTIONS.p df (WOUND CARE INSTRUCTIONS.p df) 05/07/2024 Abscess of toe of right foot (ICD-10 - L02.611) Patient Educated with: WOUND CARE INSTRUCTIONS.p df (WOUND CARE INSTRUCTIONS.p df) 05/07/2024 Ingrown nail (ICD-10 - L60.0) Plan Of Treatment Pending Test Test Name Order Date - I&D ABSCESS-COMPLICATED,MULTI Insurance Providers Payer Name Payer Address Payer Phone Subscriber Number Group Number Insured Name Patient Relationship to Insured Coverage Start Date [facility] End [facility] [address] [place] [phone] [id number] [place] - Insured does not have Financial Responsibility (includes legally adopted child) Medical (General) History Medical History History ICD Code Back,Hip,and Knee pain Broken bones covid-19 polycystic ovary syndrom - PCOS
[2025-02-18 07:41] LABS: MANUAL DIFF FLAG NO
[2025-02-18 08:42] LABS: Hematocrit 41.1 % (37.0-47.0); Hemoglobin 13.5 g/dl (12.0-16.0); Imm Gran Abs Auto 0.05 X10*3/uL (0.00-0.03); Imm Gran Pct Auto 0.5 % (0.0-0.4); Lymphocytes Absolute Auto 3.2 X10*3/uL (1.2-4.9); Mean Corpuscular HGB Conc 32.8 g/dl (31.0-35.0); Mean Corpuscular Hemoglobin 30.2 pg (27.0-33.0); Mean Corpuscular Volume 91.9 fL (80.0-98.0); NRBC Abs Auto 0.000 X10*3/uL (0.0-0.012); NRBC Pct Auto 0.0 /100WBC (0.0-0.2); Platelet Count 300 X10*3/uL (160-400); Red Blood Count 4.47 X10*6/uL (4.20-5.50); White Blood Count 9.9 X10*3/uL (4.8-10.8)
[2025-02-18 09:28] LABS: Alanine Aminotransferase 35 U/L (0-31); Albumin Level 4.4 g/dL (3.5-5.0); Alkaline Phosphatase 98 U/L (39-117); Anion Gap 15 (12-20); Aspartate Amino Transferase 28 U/L (5-31); Blood Urea Nitrogen 11 mg/dL (9-16); Calcium 9.1 mg/dL (8.4-10.2); Carbon Dioxide 20 mmol/L (22-29); Chloride 108 mmol/L (96-108); Cholesterol 238 mg/dL (<200); Estimated Glomerular Filt Rate > 60; HDL Cholesterol 39 mg/dL (>40); Potassium 4.0 mmol/L (3.3-5.1); Sodium 139 mmol/L (135-145); Total Protein 7.0 g/dL (6.5-8.0); Triglycerides 121 mg/dL (<150)
[2025-02-18 10:36] LABS: Free T4 (Free Thyroxine) 0.95 ng/dL (0.71-1.85)
== END 2025-02-18 07:24 | disposition home or self-care (01) ==
LOC: HO.LAB 07:23
PROVIDERS: Visit Provider Internal Medicine
DX: Z00.00 Encounter for general adult medical examination without abnormal findings (principal); E66.9 Obesity, unspecified; Z13.1 Encounter for screening for diabetes mellitus; Z13.29 Encounter for screening for other suspected endocrine disorder
CPT/HCPCS: 36415; 80053; 80061; 83036; 84439; 84443; 85025